=== PATIENT | male | born 1975 | race Caucasian/White ===

== ENCOUNTER 2020-02-15 10:31 | Outpatient (REF) | payer OTHER, SELFPAY ==
[2020-02-15 12:02] LABS: Alanine Aminotransferase 75 U/L (0-40); Aspartate Amino Transferase 32 U/L (5-37); C Reactive Protein 0.12 mg/dL (< or = 0.50)
[2020-02-15 13:11] LABS: Glucose Urine UA NEG (NEG); Leukocyte Esterase Urine NEG (NEG); Nitrite Urine NEG (NEG); Specific Gravity - Urine >= 1.030 (1.005-1.025); Urine Blood NEG (NEG); Urine Ketones NEG (NEG); Urine Protein NEG (NEG-TRACE)
[2020-02-15 13:14] LABS: Appearance Urine CLEAR; Color Urine YELLOW
== END 2020-02-15 10:32 | disposition home or self-care (01) ==
LOC: HO.LAB 10:31
PROVIDERS: PCP Internal Medicine; Visit Provider Internal Medicine
DX: R10.32 Left lower quadrant pain (principal); R79.89 Other specified abnormal findings of blood chemistry
CPT/HCPCS: 81003; 84450; 84460; 86140

== ENCOUNTER 2020-05-15 12:07 | Outpatient (REF) | payer OTHER, SELFPAY ==
[2020-05-15 13:09] LABS: Alanine Aminotransferase 79 U/L (0-40); Albumin Level 4.2 g/dL (3.5-5.0); Alkaline Phosphatase 72 U/L (39-117); Anion Gap 12 (12-20); Aspartate Amino Transferase 32 U/L (5-37); Bilirubin Total 0.6 mg/dL (0.0-1.0); Blood Urea Nitrogen 11 mg/dL (9-16); Calcium 9.3 mg/dL (8.4-10.2); Carbon Dioxide 29 mmol/L (22-29); Chloride 106 mmol/L (96-108); Cholesterol 262 mg/dL; Estimated Glomerular Filt Rate > 60; Glucose Fasting 103 mg/dL (60-99); HDL Cholesterol 41 mg/dL; LDL Cholesterol Calculated 180 mg/dl; Potassium 4.4 mmol/l (3.3-5.1); Sodium 143 mmol/L (135-145); Total Protein 6.8 g/dL (6.5-8.0); Triglycerides 208 mg/dL
== END 2020-05-15 12:08 | disposition home or self-care (01) ==
LOC: HO.LAB 12:07
PROVIDERS: PCP Internal Medicine; Visit Provider Internal Medicine
DX: I10 Essential (primary) hypertension (principal); E78.00 Pure hypercholesterolemia, unspecified
CPT/HCPCS: 36415; 80053; 80061

== ENCOUNTER 2020-08-27 11:48 | Outpatient (REF) | payer OTHER, SELFPAY ==
[2020-08-27 13:04] LABS: Alanine Aminotransferase 80 U/L (0-40); Albumin Level 4.3 g/dL (3.5-5.0); Alkaline Phosphatase 75 U/L (39-117); Anion Gap 13 (12-20); Aspartate Amino Transferase 34 U/L (5-37); Bilirubin Total 0.8 mg/dL (0.0-1.0); Blood Urea Nitrogen 14 mg/dL (9-16); Calcium 9.2 mg/dL (8.4-10.2); Carbon Dioxide 25 mmol/L (22-29); Chloride 106 mmol/L (96-108); Cholesterol 163 mg/dL; Estimated Glomerular Filt Rate > 60; Glucose Random 103 mg/dL (60-115); HDL Cholesterol 37 mg/dL; LDL Cholesterol Calculated 98 mg/dl; Potassium 4.2 mmol/L (3.3-5.1); Sodium 140 mmol/L (135-145); Total Protein 6.8 g/dL (6.5-8.0); Triglycerides 141 mg/dL
== END 2020-08-27 11:49 | disposition home or self-care (01) ==
LOC: HO.LAB 11:48
PROVIDERS: PCP Internal Medicine; Visit Provider Internal Medicine
DX: I10 Essential (primary) hypertension (principal); E78.00 Pure hypercholesterolemia, unspecified
CPT/HCPCS: 36415; 80053; 80061

== ENCOUNTER 2020-10-31 18:39 | Emergency (ER) | payer OTHER, SELFPAY ==
[2020-10-31 19:20] VITALS: BP 177/103; PULSE 110; RESP 18; TEMP 37.4; O2SAT 97; BMI 33.2
[2020-10-31 20:25] VITALS: BP 141/99; PULSE 102; RESP 15; TEMP 36.5; O2SAT 97
[2020-10-31 20:32] LABS: COVID-19 Test Negative (Negative); IDNOW Serial# 9DD0AD1C
[2020-10-31 22:00] VITALS: BP 139/93; PULSE 95; RESP 16; TEMP 36.3; O2SAT 99
[2020-10-31] MEDS: Amoxicillin 500 MG CAPSULE PO (22:59)
--- NOTE | 2020-10-31 23:45 | ED.GENADULT ---
HPI - General Adult General Chief complaint: General Medical Stated complaint: fever Time Seen by Provider: 10/31/20 22:09 Source: patient Mode of arrival: ambulatory Limitations: no limitations History of Present Illness HPI narrative: 45-year-old male with a past history of hypertension here with complaints of subjective fever with max temp 99.9 degrees, sore throat, dry cough, left ear pain for 24 hours. No chills, vomiting, diarrhea, abdominal pain, shortness of breath or chest pain. Related Data Previous Rx's Medication Instructions Recorded amoxicillin 500 mg PO BID #14 cap 10/31/20 ibuprofen 600 mg PO Q8H PRN #20 tab 10/31/20 Allergies Allergy/AdvReac Type Severity Reaction Status Date / Time No Known Allergies Allergy Verified 10/31/20 19:19 Review of Systems Review of Systems: Yes all other systems are reviewed and are negative Constitutional: Constitutional: Reports no additional constitutional complaints, Denies body ache(s), Denies chills, Reports fever(s) (Subjective), Denies headache(s) and Denies weakness Eyes: Eyes: Reports no additional eye complaints and Denies change in vision ENT: Reports system reviewed and no additional complaints, except as documented, Denies dizziness, Reports otalgia, Denies headache(s), Denies nasal congestion, Denies nasal discharge, Denies neck pain and Reports sore throat Cardiovascular: Cardiovascular: Reports no additional cardiovascular complaints, Denies chest pain, Denies leg edema and Denies dyspnea Respiratory: Respiratory: Reports no additional respiratory complaints, Reports cough and Denies dyspnea Gastrointestinal: Gastrointestinal: Reports no additional gastrointestinal complaints, Denies abdominal pain, Denies diarrhea, Denies nausea and Denies vomiting Genitourinary: Genitourinary: Denies urinary incontinence Musculoskeletal: Musculoskeletal: Reports no additional musculoskeletal complaints, Denies back pain, Denies arthralgias, Denies joint swelling, Denies neck pain, Denies numbness and Denies tingling Integumentary/Breasts: Skin/Breast: Reports system reviewed and no additional complaints, except as docu and Denies rash Neurologic: Reports system reviewed and no additional complaints, except as documented, Denies Abnormal speech present, Denies dizziness, Denies headache(s), Denies numbness, Denies tingling and Denies weakness [facility] Past Medical History Attestation statement: The following information was validated with the patient. Source: old records reviewed and nursing notes reviewed Medical History High cholesterol HTN (hypertension) Social History Social History Advance Directives: No Advance Directives Information Provided: No Physical Exam Vital Signs: Vital Signs: Last Vital Signs Temp 97.4 F 10/31/20 22:00 Pulse 95 10/31/20 22:00 Resp 16 10/31/20 22:00 BP 139/93 H 10/31/20 22:00 Pulse Ox 99 10/31/20 22:00 Body Mass Index 33.2 Const: General: cooperative, healthy appearing, comfortable and no acute distress Orientation/consciousness: patient oriented x3 Limitations: no limitations HENMT: Head: Yes normal to inspection Ears: hearing grossly normal bilaterally, TM normal on the right and TM abnormal (Left tympanic membrane bulging with erythema) General nose exam: Normal external nose present Face and sinus: Yes normal facial exam Mouth: Normal oral and palatal mucosa present Throat: Yes posterior oropharynx normal, Yes tonsils normal and Yes uvula midline Eyes: General: appearance normal, both eyes and all related structures Pupils: Equal, round and reactive pupils present Neck: Neck: Yes normal visual inspection, Yes full ROM, Yes no lymphadenopathy and Yes no meningeal signs Chest: Chest palpation & inspection: normal inspection of the chest Resp: Effort & Inspection: normal respiratory effort Auscultation: clear to auscultation bilaterally Cardio: Rate: regular rate Rhythm: regular rhythm Peripheral pulses: Peripheral pulses 2+ throughout GI: Inspection: Yes normal to inspection Palpation (GI): Soft to palpation and nontender Auscultation: normal bowel sounds Back/Spine/Pelvis: Thoracic/Lumbar Spine: thoracic and lumbar spine normal to inspection Skin: General skin exam: no rashes or lesions noted Neuro: General: patient oriented x3, no meningeal signs, no focal motor deficits and normal sensation to monofilament Cranial nerves: Yes Equal, round and reactive pupils present Cognition (Neuro): normal cognition Speech: No Abnormal speech present Gait exam (Neuro): Normal gait present Motor exam (neuro): 5/5 motor strength present throughout Extrem: General: Yes normal to inspection, Yes no pedal edema and Yes no calf tenderness Course Course Course Narrative: 45-year-old male here with URI symptoms times 24 hours. COVID screen done from triage which is negative. On exam the patient has a left AOM. Will treat with course of antibiotics. Recommended retesting for COVID in several days V continues to have symptoms. Reviewed worrisome signs and symptoms of when to return to the emergency department. Comfortable discharge home. Medical Decision Making Medical Records Medical records reviewed: Yes I reviewed the patient's medical records. Lab Data Lab results reviewed: Yes I reviewed the patient's lab results. Labs: Lab Results 10/31/20 Range/Units 20:09 COVID-19 ([facility]) Negative (Negative) COVID-19 Clin Com See Note Discharge Plan Discharge Clinical Impression: Otitis media, Acute viral syndrome Patient Disposition: Home, Self-Care Instructions: Ear Infection (ED), Viral Syndrome (ED) Additional Instructions: Your COVID test today was negative. This is likely a virus. Increase fluids, rest Take Motrin or Tylenol if able as needed for pain or fever Prescriptions: New amoxicillin 500 mg capsule 500 mg PO BID Qty: 14 RF: 0 ibuprofen 600 mg tablet 600 mg PO Q8H PRN (Reason: pain) Qty: 20 RF: 0 Referrals: Aquiles Weldon MD [Primary Care Provider] - 2 days Stand Alone Forms: Work/School Release Interventions: ED Discharge Assessment Last Done: 10/31/20 22:59 Discharge Date/Time: 10/31/20 23:00 Print Language: Serbian
== END 2020-10-31 23:00 | disposition home or self-care (01) ==
PROVIDERS: Emergency Provider Emergency Medicine Emergency Medical Services; PCP Internal Medicine
DX: B34.9 Viral infection, unspecified (principal); H66.92 Otitis media, unspecified, left ear; I10 Essential (primary) hypertension; Z20.822 Contact with and (suspected) exposure to COVID-19
CPT/HCPCS: 36415; 87635; 99283

== ENCOUNTER 2021-04-12 13:26 | Outpatient (REF) | payer OTHER, SELFPAY | END 2021-04-12 13:27 | disposition home or self-care (01) | LOC: HO.LAB 13:26 | PROVIDERS: PCP Internal Medicine; Visit Provider Internal Medicine | DX: Z20.822 Contact with and (suspected) exposure to COVID-19 (principal) | CPT/HCPCS: C9803; U0003; U0005 ==

== ENCOUNTER 2021-05-07 08:25 | Outpatient (REF) | payer OTHER, SELFPAY | END 2021-05-07 08:26 | disposition home or self-care (01) | LOC: HO.LAB 08:25 | PROVIDERS: Visit Provider Internal Medicine | DX: Z20.822 Contact with and (suspected) exposure to COVID-19 (principal) | CPT/HCPCS: C9803; U0003; U0005 ==

== ENCOUNTER 2021-05-15 15:34 | Outpatient (REF) | payer OTHER, SELFPAY ==
--- NOTE | ~2021-05-15 | XR_ITS ---
EXAMINATION: XR chest 2V CLINICAL INFORMATION: Reason for Exam COUGH, S/P COVID COMPARISON: Prior study 05/15/2021 TECHNIQUE: XR chest 2V Lungs and Jazmyn: Faint hazy interstitial patchy opacification over the right upper lobe concerning for possible atypical pneumonia such as viral pneumonitis. Prominent left hilum, although could be vascular, cannot rule out underlying adenopathy. Pleura: Normal. Costophrenic angles are sharp. No pneumothorax. Heart: The heart is normal in size. Mediastinum: The mediastinum is within normal limits.. Bones: Skeletal structures included are normal for patient's age. XR/XR chest 2V IMPRESSION: Patchy hazy interstitial mild opacification over the right upper lobe concerning for interstitial pneumonitis which could be viral. No dense consolidation or pleural effusion. Prominent left jazmyn, this could be vascular, cannot rule out underlying lesion or adenopathy. Attention to follow-up chest x-ray one month after completion of treatment recommended, if persisted may consider correlation with follow-up contrast enhanced CT scan.
== END 2021-05-15 15:35 | disposition home or self-care (01) ==
LOC: HO.LAB 15:34
PROVIDERS: Absent Provider Internal Medicine; Visit Provider Internal Medicine
DX: R05.9 Cough, unspecified (principal); Z86.16 Personal history of COVID-19
CPT/HCPCS: 71046; 87071

== ENCOUNTER 2021-09-09 13:28 | Outpatient (REF) | payer OTHER, SELFPAY ==
--- NOTE | ~2021-09-09 | XR_ITS ---
EXAMINATION: XR CHEST CLINICAL INFORMATION: Hypertension. Post Covid infection. COMPARISON: Previous chest x-ray May 2021 TECHNIQUE: 2 views of the chest were obtained. FINDINGS: The cardiac and mediastinal contours are stable. There is minimal linear scarring or subsegmental atelectasis left upper lung and retrosternally in the lateral view. The lungs are otherwise clear. There is no evidence of pneumonia. There is no pleural effusion or pneumothorax. There are degenerative changes of the spine. XR/XR chest 2V IMPRESSION: Minimal subsegmental atelectasis. No evidence of pneumonia.
[2021-09-09 13:52] LABS: MANUAL DIFF FLAG NO
[2021-09-09 14:05] LABS: Basophils Percent Auto 0.5 % (0-2); Eosinophils Absolute Auto 0.1 X10*3/uL (0.0-0.4); Eosinophils Percent Auto 1.9 % (0-4); Hematocrit 46.3 % (42.0-52.0); Hemoglobin 15.7 g/dl (14.0-18.0); Imm Gran Abs Auto 0.03 X10*3/uL (0.00-0.03); Imm Gran Pct Auto 0.5 % (0.0-0.4); Lymphocytes Absolute Auto 1.9 X10*3/uL (1.2-4.9); Lymphocytes Percent Auto 29.9 % (20-40); Mean Corpuscular HGB Conc 33.9 g/dl (31.0-36.0); Mean Corpuscular Volume 88.5 fL (80.0-98.0); Mean Platelet Volume 9.2 fL (9.4-12.4); Monocytes Absolute Auto 0.5 X10*3/uL (0.1-1.2); Monocytes Percent Auto 7.9 % (2-11); Neutrophils Absolute Auto 3.9 x10*3/uL (2.0-8.3); Neutrophils Percent Auto 59.3 % (45-73); Platelet Count 243 X10*3/uL (160-400); Red Blood Count 5.23 X10*6/uL (4.60-5.80); Red Cell Distribution Width 12.5 % (11.0-16.0); White Blood Count 6.5 X10*3/uL (4.8-10.8)
[2021-09-09 14:42] LABS: Alanine Aminotransferase 47 U/L (0-40); Albumin Level 4.3 g/dL (3.5-5.0); Alkaline Phosphatase 64 U/L (39-117); Anion Gap 13 (12-20); Aspartate Amino Transferase 31 U/L (5-37); Bilirubin Total 0.7 mg/dL (0.0-1.0); Blood Urea Nitrogen 15 mg/dL (9-16); C Reactive Protein 0.09 mg/dL (< or = 0.50); Calcium 10.2 mg/dL (8.4-10.2); Carbon Dioxide 29 mmol/L (22-29); Chloride 105 mmol/L (96-108); Estimated Glomerular Filt Rate > 60; Glucose Random 77 mg/dL (60-115); Potassium 4.6 mmol/L (3.3-5.1); Sodium 142 mmol/L (135-145)
== END 2021-09-09 13:29 | disposition home or self-care (01) ==
LOC: HO.LAB 13:28
PROVIDERS: PCP Internal Medicine; Visit Provider Internal Medicine
DX: Z13.89 Encounter for screening for other disorder (principal)
CPT/HCPCS: 36415; 71046; 80053; 85025; 86140

== ENCOUNTER 2022-01-06 07:34 | Outpatient (REF) | payer OTHER, SELFPAY ==
--- NOTE | ~2022-01-06 | CT_ITS ---
EXAMINATION: CT SINUS WITHOUT CONTRAST CLINICAL INFORMATION: Atypical facial pain. COMPARISON: None. TECHNIQUE: Axial 2 mm thin and reformatted 2 mm thin sagittal and coronal images of facial bones were obtained. This CT examination was performed using dose optimization techniques as appropriate, variously including the following: *Automated exposure control *Adjustment of mA and/or kV according to patient size (this includes techniques or standardized protocols for targeted exams where dose is matched to indication/reason for exam; i.e. extremities or head) *Use of iterative reconstruction technique DLP: 145 mGy-cm. FINDINGS: There is normal aeration of bilateral paranasal sinuses without air-fluid level or mucoperiosteal thickening. There is nonspecific bony septation in the inferior bilateral maxillary sinuses. Bilateral ostiomeatal complex and frontoethmoidal recesses are widely patent. The bony sinus lowe, lamina papyracea and cribriform plate appears intact. Mild deviation of anterior nasal septum with symmetrical bilateral turbinates are noted. There is miguel bullosa left middle turbinate. The nasopharynx and the nasal cavity airway is patent. Bilateral optic globe, optic nerves, soft tissues and bony orbital lowe are intact. Bilateral TM joints, mandible, maxilla and the nasal bone appears normal no periapical disease is seen along the maxilla. The craniovertebral junction, the C1-C2 alignment and bilateral middle ear, mastoid sinuses and internal auditory canal appear unremarkable. CT/CT sinus wo IV con IMPRESSION: Mild deviation of anterior nasal septum to the right. Otherwise, the paranasal sinuses are well aerated and clear. The mastoid sinuses are clear.
== END 2022-01-06 07:35 | disposition home or self-care (01) ==
LOC: HO.CT 07:34
PROVIDERS: PCP Internal Medicine; Visit Provider Otolaryngology
DX: G50.1 Atypical facial pain (principal); R43.8 Other disturbances of smell and taste
CPT/HCPCS: 70486

== ENCOUNTER 2022-02-28 13:31 | Outpatient (REF) | payer OTHER, SELFPAY ==
[2022-02-28 13:46] LABS: MANUAL DIFF FLAG NO
[2022-02-28 13:59] LABS: Basophils Percent Auto 0.5 % (0-2); Eosinophils Absolute Auto 0.1 X10*3/uL (0.0-0.4); Eosinophils Percent Auto 1.1 % (0-4); Hematocrit 43.9 % (42.0-52.0); Hemoglobin 15.4 g/dl (14.0-18.0); Imm Gran Abs Auto 0.03 X10*3/uL (0.00-0.03); Imm Gran Pct Auto 0.4 % (0.0-0.4); Lymphocytes Absolute Auto 1.8 X10*3/uL (1.2-4.9); Lymphocytes Percent Auto 23.6 % (20-40); Mean Corpuscular HGB Conc 35.1 g/dl (31.0-36.0); Mean Corpuscular Hemoglobin 30.2 pg (27.0-33.0); Mean Corpuscular Volume 86.1 fL (80.0-98.0); Mean Platelet Volume 9.3 fL (9.4-12.4); Monocytes Absolute Auto 0.5 X10*3/uL (0.1-1.2); Monocytes Percent Auto 6.3 % (2-11); Neutrophils Percent Auto 68.1 % (45-73); Platelet Count 218 X10*3/uL (160-400); Red Cell Distribution Width 12.2 % (11.0-16.0); White Blood Count 7.4 X10*3/uL (4.8-10.8)
[2022-02-28 14:35] LABS: Alanine Aminotransferase 44 U/L (0-40); Albumin Level 4.5 g/dL (3.5-5.0); Alkaline Phosphatase 62 U/L (39-117); Anion Gap 15 (12-20); Aspartate Amino Transferase 35 U/L (5-37); Bilirubin Total 0.7 mg/dL (0.0-1.0); Blood Urea Nitrogen 13 mg/dL (9-16); C Reactive Protein 0.07 mg/dL (< or = 0.50); Calcium 9.3 mg/dL (8.4-10.2); Carbon Dioxide 25 mmol/L (22-29); Chloride 105 mmol/L (96-108); Cholesterol 184 mg/dL; Estimated Glomerular Filt Rate 59; Glucose Fasting 93 mg/dL (60-99); HDL Cholesterol 45 mg/dL; LDL Cholesterol Calculated 112 mg/dl; Sodium 141 mmol/L (135-145); Triglycerides 139 mg/dL
[2022-02-28 14:56] LABS: Prostate Specific Antigen Scr 0.53 ng/mL (<0.05-4.0)
== END 2022-02-28 13:32 | disposition home or self-care (01) ==
LOC: HO.LAB 13:31
PROVIDERS: PCP Internal Medicine; Visit Provider Internal Medicine
DX: Z00.00 Encounter for general adult medical examination without abnormal findings (principal)
CPT/HCPCS: 36415; 80053; 80061; 84153; 85025; 86140

== ENCOUNTER → 2022-03-06 07:52 | Outpatient (REF) | payer OTHER, SELFPAY ==
--- NOTE | 2022-03-06 08:00 | CA_ITS ---
Acquisition Time: 2022-03-06 08:04:42 Total Exercise Time: 00:09:00 Test Indications: CP Medications: SEE CHART Protocol: NANCY Max HR: 166 BPM 96% of Pred: 172 BPM Max BP: 164/090 mmHG Max Work Load: 10.1 METS PT EXERCISED ON STD NANCY PROTOCOL FOR 3 MIN THRU STAGE 3. BASELINE EKG SHOWS INVERTED T-WAVES IN 2,3,F,AND V3-6. NO CHANGE WITH EXERCISE. MAX HR 166-96%MAX. NO CP,MILD SOB. CLINICALLY AND ELEC NEG. Referred By: Aquiles Jha Overread By: DESIREE JHA MD
== END ==
LOC: HO.CARD 07:52
PROVIDERS: PCP Internal Medicine; Visit Provider Internal Medicine
DX: R07.9 Chest pain, unspecified (principal)
CPT/HCPCS: 93017

== ENCOUNTER 2022-07-07 07:54 | Outpatient (REF) | payer OTHER, SELFPAY ==
--- NOTE | ~2022-07-07 | XR_ITS ---
EXAMINATION: XR KNEE, RIGHT CLINICAL INFORMATION: Right knee pain COMPARISON: None TECHNIQUE: 3 views of the right knee. FINDINGS: The tricompartment joint space is preserved. No visible fracture, dislocation, loose bodies or joint effusion seen. XR/XR knee RT 3V IMPRESSION: Unremarkable right knee exam.
== END 2022-07-07 07:55 | disposition home or self-care (01) ==
LOC: HO.XRAY 07:54
PROVIDERS: PCP Internal Medicine; Visit Provider Internal Medicine
DX: M25.561 Pain in right knee (principal)
CPT/HCPCS: 73562

== ENCOUNTER 2022-09-22 08:30 | Outpatient (REF) | payer OTHER, SELFPAY ==
[2022-09-22 08:47] LABS: MANUAL DIFF FLAG NO
[2022-09-22 09:28] LABS: Basophils Percent Auto 0.5 % (0-2); Eosinophils Absolute Auto 0.1 X10*3/uL (0.0-0.4); Eosinophils Percent Auto 1.9 % (0-4); Hematocrit 46.7 % (42.0-52.0); Hemoglobin 15.6 g/dl (14.0-18.0); Imm Gran Abs Auto 0.02 X10*3/uL (0.00-0.03); Imm Gran Pct Auto 0.3 % (0.0-0.4); Lymphocytes Absolute Auto 2.1 X10*3/uL (1.2-4.9); Lymphocytes Percent Auto 36.3 % (20-40); Mean Corpuscular HGB Conc 33.4 g/dl (31.0-36.0); Mean Corpuscular Hemoglobin 28.8 pg (27.0-33.0); Mean Corpuscular Volume 86.3 fL (80.0-98.0); Mean Platelet Volume 9.3 fL (9.4-12.4); Monocytes Absolute Auto 0.4 X10*3/uL (0.1-1.2); Monocytes Percent Auto 7.3 % (2-11); Neutrophils Absolute Auto 3.2 x10*3/uL (2.0-8.3); Neutrophils Percent Auto 53.7 % (45-73); Platelet Count 217 X10*3/uL (160-400); Red Blood Count 5.41 X10*6/uL (4.60-5.80); Red Cell Distribution Width 12.9 % (11.0-16.0); White Blood Count 5.9 X10*3/uL (4.8-10.8)
[2022-09-22 10:01] LABS: Anion Gap 8 (12-20); Blood Urea Nitrogen 12 mg/dL (9-16); C Reactive Protein < 0.10 mg/dL (< or = 0.50); Calcium 9.3 mg/dL (8.4-10.2); Carbon Dioxide 30 mmol/L (22-29); Chloride 107 mmol/L (96-108); Estimated Glomerular Filt Rate > 60; Glucose Random 97 mg/dL (60-115); Potassium 4.4 mmol/L (3.3-5.1); Sodium 141 mmol/L (135-145)
[2022-09-22 11:34] LABS: Appearance Urine Clear; Color Urine Yellow; Glucose Urine UA Negative (Negative); Leukocyte Esterase Urine Negative (Negative); Nitrite Urine Negative (Negative); PH 5.5 (5.0-9.0); Urine Blood Negative (Negative); Urine Ketones Negative (Negative); Urine Protein Negative (Neg-Trace)
== END 2022-09-22 08:31 | disposition home or self-care (01) ==
LOC: HO.LAB 08:30
PROVIDERS: PCP Internal Medicine; Visit Provider Internal Medicine
DX: R10.32 Left lower quadrant pain (principal)
CPT/HCPCS: 36415; 80048; 81003; 85025; 86140

== ENCOUNTER 2022-10-22 08:19 | Outpatient (REF) | payer OTHER, SELFPAY ==
--- NOTE | ~2022-10-22 | CT_ITS ---
EXAMINATION: CT ABDOMEN AND PELVIS WITHOUT CONTRAST CLINICAL INFORMATION: Left lower quadrant pain COMPARISON: Previous CT of the abdomen and pelvis October 2012 TECHNIQUE: Multidetector volumetric imaging was performed from the superior aspect of the liver through the pubic symphysis. Sagittal and coronal reformatted images were obtained on the technologist's workstation. This CT examination was performed using dose optimization techniques as appropriate, variously including the following: *Automated exposure control *Adjustment of mA and/or kV according to patient size (this includes techniques or standardized protocols for targeted exams where dose is matched to indication/reason for exam; i.e. extremities or head) *Use of iterative reconstruction technique DLP: 647 mGy-cm FINDINGS: LUNG BASES: The visualized lung bases are unremarkable. LIVER, GALLBLADDER, AND BILIARY TREE: The liver is normal in size, shape, and attenuation. No focal hepatic lesion or biliary ductal dilatation is present. The gallbladder is unremarkable with no evidence of radiopaque gallstones, gallbladder wall thickening, or obvious pericholecystic inflammatory changes. PANCREAS: Unremarkable. SPLEEN: Unremarkable. ADRENAL GLANDS: Unremarkable. KIDNEYS AND URETERS: The kidneys are normal in size, shape, and attenuation. No hydronephrosis, hydroureter, or calculi seen. No perinephric stranding. BLADDER: Unremarkable. GASTROINTESTINAL TRACT: The small and large bowel are unremarkable. The appendix is unremarkable. ABDOMINAL WALL: No significant hernia is appreciated. LYMPH NODES: Normal. VASCULAR: Unremarkable. PELVIC VISCERA: Unremarkable. OSSEOUS STRUCTURES: Unremarkable. CT/CT abdomen pelvis wo IV con IMPRESSION: Unremarkable exam. Fleischner guidelines were followed.
[2022-10-22] MEDS: Barium Sulfate Oral (Berry) 450 ML ORAL.SUSP 900 ML PO (10:41)
== END 2022-10-22 08:20 | disposition home or self-care (01) ==
LOC: HO.CT 08:19
PROVIDERS: PCP Internal Medicine; Visit Provider Internal Medicine
DX: R10.32 Left lower quadrant pain (principal)
CPT/HCPCS: 74176

== ENCOUNTER 2024-05-24 13:23 | Emergency (ER) | payer OTHER, SELFPAY ==
--- NOTE | ~2024-05-24 | XR_ITS ---
EXAMINATION: XR HAND/WRIST, RIGHT CLINICAL INFORMATION: right middle finger wood stuck. COMPARISON: Right none. TECHNIQUE: PA, lateral, and oblique views of the right hand and wrist. FINDINGS: The bones and soft tissues are normal. No fracture. Alignment is anatomic. Joint spaces are maintained. No erosions or soft tissue calcifications. There are no visible radiopaque foreign body seen in the soft tissues of right middle finger. XR/XR hand wrist RT IMPRESSION: Normal radiographs of the hand and wrist. No radiopaque foreign body seen in the right middle finger Electronically signed by: Rajinder Guerreor MD 05/24/2024 02:09 PM EST
[2024-05-24 13:25] VITALS: BP 119/87; PULSE 95; RESP 16; TEMP 36.3; O2SAT 98; BMI 31.9
--- NOTE | 2024-05-24 13:29 | ED_ITS ---
HPI - General Adult General Chief complaint: Skin/Abscess/Foreign Body Stated complaint: Finger injury Time Seen by Provider: 05/24/24 20:59 Source: patient Mode of arrival: ambulatory Limitations: no limitations History of Present Illness ED Provider: Dr. Lamin Ulloa HPI narrative: 49-year-old male history of hypertension and hyperlipidemia who has a splinter in his right ring finger. He states that he was sanding would and actually got a splinter into his finger. This occurred 3 days prior. The patient's was sanding wood and states that the splinter went deep into his finger and he was unable to remove it. He was currently complaining of pain and swelling of the tip of his right ring finger. He states that his last tetanus shot was greater than 5 years prior. Related Data Previous Rx's ?Medication ?Instructions ?Recorded amoxicillin 500 mg capsule 500 mg PO BID #14 caps 10/31/20 ibuprofen 600 mg tablet 600 mg PO Q8H PRN pain #20 tabs 10/31/20 cephalexin 500 mg capsule 500 mg PO QID 7 days #28 caps 05/24/24 ibuprofen 400 mg tablet 400 mg PO TID PRN fever or pain 05/24/24 #30 tabs Allergies Allergy/AdvReac Type Severity Reaction Status Date / Time No Known Allergies Allergy Verified 05/24/24 13:27 Review of Systems 2 Review of Systems: Yes all other systems are reviewed and are negative PMF Past Medical History Medical History High cholesterol HTN (hypertension) Social History Social History Advance Directives: No Advance Directives Information Provided: No Physical Exam ED Vital Signs: Vital Signs - 24 hr 05/24/24 13:25 05/24/24 19:04 05/24/24 23:07 Temperature 97.3 F 97.6 F 97.6 F Pulse Rate 95 66 66 Respiratory Rate 16 16 16 Blood Pressure 119/87 185/113 H 185/113 H Pulse Oximetry 98 100 100 Oxygen Delivery Method Room Air Room Air Room Air BMI result Body Mass Index 31.9 Vital signs revealed an elevated blood pressure of 185/113 otherwise unremarkable Exam The patient's right 5th finger has a small pustule at the tip with no significant soft tissue swelling erythema or warmth, fingers neurovascularly intact. Does have tenderness palpation of the tip is his finger and feels like there is a foreign body in the tip of his finger. Course Course Course Narrative: RmE: 49-year-old male presents to ED piece of wood stuck in right middle finger that has been there for 3 days and now fingers swollen and tender. No pus drainage. Exam positive for dorsal aspect of right middle finger swollen. X- ray ordered. Medications Administered Discontinued Medications Generic Name Dose Route Start Last Admin Trade Name Manju PRN Reason Stop Dose Admin Bacitracin 1 appl 05/24/24 22:31 05/24/24 22:59 Bacitracin Oint 0.9 Gm Packet TOPICAL 05/24/24 22:32 1 appl ONCE ONE Administration Protocol Cephalexin HCl 500 mg 05/24/24 22:31 05/24/24 23:01 Cephalexin 500 Mg Capsule PO 05/24/24 22:32 500 mg ONCE ONE Administration Diphtheria/Tetanus/Acell Pertussis 0.5 ml 05/24/24 22:39 05/24/24 23:00 Diphth,Pertus(Acell),Tet Adult 0.5 Ml Syringe IM 05/24/24 22:40 0.5 ml .ONCE ONE Administration Ibuprofen 400 mg 05/24/24 22:31 05/24/24 23:00 Ibuprofen 400 Mg Tablet PO 05/24/24 22:32 400 mg ONCE STA Administration Lidocaine HCl 5 ml 05/24/24 21:09 05/24/24 21:13 Lidocaine Hcl 1 % Mpf 5 Ml Vial INFILTRATI 05/24/24 21:10 5 ml ONCE STA Administration Lidocaine HCl 5 ml 05/24/24 21:10 05/24/24 21:13 Lidocaine Hcl 1 % Mpf 5 Ml Vial INFILTRATI 05/24/24 21:11 5 ml ONCE STA Administration Procedures Procedure Narrative Procedure Narrative: Right 4th finger imbedded foreign body removal (wooden splinter): I did discuss he exploratory procedure with the patient and he did give me informed verbal consent to proceed. I did tell him that there was at least a 50% chance that I was not able to find the splinter and he understood and agreed to proceed. Patient's finger was prepped with Betadine and then digital block was achieved with 10 cc of 1% lidocaine. A ring tourniquet was placed over the patient's finger to control bleeding. Using a #11 scalpel and coming to lateral incisions in order to find the tip of the splinter. Using forceps I was able to remove the splinter. The splint appears to be intact and measured 12 mm. The wound was then irrigated with 250 cc of normal saline. Given the with of the 2 tracts that I had to treat nor define the splinter, I closed the wound with 5.0 nylon sutures times 3 sutures. The patient did have some pain during the procedure but he did tolerate the procedure well. Medical Decision Making Medical Decision Making [facility] [place] Narrative: 49-year-old male history of hypertension and hyperlipidemia who has a splinter in his right ring finger x3 days. Patient states that the tip of his finger is swollen and painful and he was not been able to remove the splinter. He believes the splinter is deep inside his finger. He was last tetanus shot was greater than 5 years prior. Vital signs did reveal an elevated blood pressure but I suspect this is secondary to his pain. Patient's finger does appear to be swollen and there is a small pustule at the tip of the finger. Differential diagnosis: ?Includes but is not limited to cellulitis, abscess, imbedded wooden splinter Course: The patient's right ring finger was prepped with Betadine , digital block was achieved with 10 cc of 1% lidocaine. Using a #11 scalpel I had to make 2 incisions in order to find the splinter track. Using forceps and was able to grasp the end of the splinter and remove a 12 mm would not splinter which appears to be intact. There was a small amount of purulent material which was released with the initial insists in. Wound was irrigated 250 cc of normal saline. Given the size of the incision track I did place 3 loose 5.0 nylon sutures. Patient was given a Tdap vaccination. He was started on Keflex 500 mg 4 times a day and given his 1st dose orally here in the emergency department. He was also prescribed ibuprofen 400 mg q.6 hours as needed for pain The stitches will need to be removed in 7 days. He was given printed and verbal instructions and discharged home. Admission/Observation Consideration of admission/observation: Escalation of care including admission/observation considered (No) Independent Interpretation I performed an independent interpretation of an: Plain X-Ray Interpretation: My interpretation of the patient's hand x-ray is as follows: No foreign body seen Radiology Impression Discussion of test interpretation with radiology: I have reviewed the radiologist's reading. Radiologist Impression: XR hand wrist RT IMPRESSION: Normal radiographs of the hand and wrist. No radiopaque foreign body seen in the right middle finger Electronically signed by: Rajinder Guerrero MD 05/24/2024 02:09 PM [facility] [place] Prescription Management I considered prescription management with: Pain Medication and Antibiotic Discharge Plan Discharge Clinical Impression: Foreign body finger-inf, Splinter in skin Patient Disposition: Home, Self-Care Instructions: Puncture Wound (ED) Additional Instructions: You had a puncture wound caused by a wooden splinter which I was able to remove There was pus at the tip of your finger suggesting that you also have an infection of your finger. I had to cut a deep wide channel in your finger in order to find the splinter therefore I put 3 stitches in the incision wound to hold the incision together. The stitches as needed to be removed in 1 week either by your doctor, in urgent care or the emergency department. Watch for signs of infection which would include increased redness, increased swelling, drainage of pus, increased pain. Take Keflex (cephalexin) 500 mg pills, 1 pill 4 times a day for 7 days. Take ibuprofen 400 mg pills,1pills every 6 hours as needed for pain or fever. Take Tylenol (acetaminophen) 500 mg pills, 2 pills every 6 hours as needed for pain or fever. Follow-up with your doctor in 2 days. Please return to the emergency department if your symptoms get worse or if you develop any symptoms that are concerning to you. You also received a tetanus, diptheria and pertussis vaccination today (Tdap). You will need a repeat Tdap accident in 5-10 years if you get a contaminated wound or a booster shot in 10 years. Prescriptions: New cephalexin 500 mg capsule 500 mg PO QID 7 Days Qty: 28 0RF ibuprofen 400 mg tablet 400 mg PO TID PRN (Reason: fever or pain) Qty: 30 0RF No Action amoxicillin 500 mg capsule 500 mg PO BID Qty: 14 0RF ibuprofen 600 mg tablet 600 mg PO Q8H PRN (Reason: pain) Qty: 20 0RF Stand Alone Forms: Work/School Release Interventions: ED Discharge Assessment Last Done: 05/24/24 23:07 Discharge Date/Time: 05/24/24 23:07 Print Language: Divehi
[2024-05-24 19:04] VITALS: BP 185/113; PULSE 66; RESP 16; TEMP 36.4; O2SAT 100
[2024-05-24] MEDS: Lidocaine HCl 1 % MPF 5 ML VIAL INFILTRATI ×2 (21:13)
[2024-05-24] MEDS: Bacitracin Oint 0.9 GM PACKET 1 APPL TOPICAL (22:59)
[2024-05-24] MEDS: Diphth,Pertus(ACell),Tet Adult 0.5 ML SYRINGE IM (23:00)
[2024-05-24] MEDS: Ibuprofen 400 MG TABLET PO (23:00)
[2024-05-24] MEDS: cephALEXin 500 MG CAPSULE PO (23:01)
[2024-05-24 23:07] VITALS: BP 185/113; PULSE 66; RESP 16; TEMP 36.4; O2SAT 100
== END 2024-05-24 23:07 | disposition home or self-care (01) ==
PROVIDERS: Emergency Provider Emergency Medicine Emergency Medical Services; PCP Internal Medicine
DX: S61.244A Puncture wound with foreign body of right ring finger without damage to nail, initial encounter (principal); W45.8XXA Other foreign body or object entering through skin, initial encounter; Y93.9 Activity, unspecified; Y92.9 Unspecified place or not applicable; Y99.9 Unspecified external cause status; Z23 Encounter for immunization
CPT/HCPCS: 10120; 73110; 73130; 90471; 90715; 99283; 99284; J2003

== ENCOUNTER → 2024-05-24 13:28 | Outpatient (BNV) | payer OTHER, SELFPAY | PROVIDERS: PCP Internal Medicine; Visit Provider Radiology Diagnostic Radiology | DX: S60.551A Superficial foreign body of right hand, initial encounter (principal) | CPT/HCPCS: 73110; 73130 ==